=== PATIENT | male | born 1970 | race Caucasian/White ===

== ENCOUNTER 2018-08-25 09:21 | Emergency (ER) | payer OTHER ==
[~2018-08-25] VITALS: Ht 172.7 cm; Wt 115.5 kg
[~2018-08-25 09:21] MED LIST: NOCURR
[2018-08-25] MEDS ORDERED: LISI-662 PO (09:33)
[2018-08-25] MEDS ORDERED: GEMF600T5 PO (09:33)
[2018-08-25] MEDS ORDERED: GLIP5 PO (09:33)
[2018-08-25] MEDS ORDERED: METF-960 PO (09:33)
[2018-08-25 09:39] LABS: GLUCOSE,POINT OF CARE 245 MG/DL (70-110)
[2018-08-25 10:29] VITALS: BP 148/88
== END 2018-08-25 10:58 | disposition home or self-care (01) ==
LOC: EMS 09:21
DX: S63.501A Unspecified sprain of right wrist, initial encounter (principal); M25.551 Pain in right hip; E11.9 Type 2 diabetes mellitus without complications; I10 Essential (primary) hypertension; E66.9 Obesity, unspecified; Z68.38 Body mass index [BMI] 38.0-38.9, adult; Z79.899 Other long term (current) drug therapy; Z79.84 Long term (current) use of oral hypoglycemic drugs; W19.XXXA Unspecified fall, initial encounter; Y93.G3 Activity, cooking and baking; Y92.89 Other specified places as the place of occurrence of the external cause; Y99.0 Civilian activity done for income or pay